=== PATIENT | male | born 1975 | race Hispanic/Latino ===

== ENCOUNTER 2016-10-05 09:50 | Emergency (ER) | payer OTHER ==
[~2016-10-05] VITALS: Ht 177.8 cm; Wt 100.0 kg
[~2016-10-05 09:50] MED LIST: AMOXICILLIN500 MG PO; CEPHALEXIN500 MG PO; DOXYCYCL HYC100 M4 PO; FLEXERIL PO; LORTAB 7.5 PO; LORTAB5 PO; PERCOCET 5/325M1 TAB PO; PERCOCET1 TA4 PO; ULTRAM50 M1 PO
[2016-10-05] MEDS ORDERED: NAPROSYN500 MG PO (11:24)
[2016-10-05 11:25] VITALS: BP 149/76
== END 2016-10-05 11:35 | disposition home or self-care (01) | DRG 605 ==
LOC: ED 09:50
DX: S60.221A Contusion of right hand, initial encounter (principal); F17.210 Nicotine dependence, cigarettes, uncomplicated; W23.0XXA Caught, crushed, jammed, or pinched between moving objects, initial encounter

== ENCOUNTER 2017-09-27 06:48 | Emergency (ER) | payer SELFPAY ==
[~2017-09-27] VITALS: Ht 177.8 cm; Wt 85.0 kg
[~2017-09-27 06:48] MED LIST changes: +NAPROSYN500 MG PO
[2017-09-27 07:47] LABS: HEMATOCRIT 44.7 % (39.0-50.0); HEMOGLOBIN 15.1 g/dl (14.0-18.0); IMMATURE GRANULOCYTES 0.2 % (0.0-1.0); MEAN CORPUSCULAR HGB 31.6 pG CALC (26.0-32.0); MEAN CORPUSCULAR HGB CONC 33.8 g/L CALC (32.0-36.0); NEUT# 2.75 thou/uL (1.82-7.42); RED BLOOD COUNT 4.78 mill/uL (4.70-6.10); RED CELL DISTRI WIDTH 13.1 % (11.5-15.5)
[2017-09-27 07:50] LABS: MEAN CELL VOLUME 93.5 fL CALC (80.0-100.0)
[2017-09-27 08:01] LABS: ALBUMIN 3.8 g/dL (3.2-5.0); ALKALINE PHOSPHATASE 146 u/l (38-126); ANION GAP 17 (6-22 (CALC)); BUN 6 mg/dL (9-20); BUN/CREATININE RATIO 6 (12-20 (CALC)); CARBON DIOXIDE 23 mmol/l (22-30); CHLORIDE 103 mmol/l (95-108); GFR > 60 ML/MIN (>=60 (CALC)); GFR FOR AFR.AMER. > 60 ML/MIN (>=60 (CALC)); POTASSIUM 4.2 mmol/l (3.5-5.1); SGPT/ALT 73 u/l (21-72); SODIUM 139 mmol/l (137-146); TOTAL PROTEIN 7.2 g/dL (6.3-8.2)
[2017-09-27 08:03] LABS: SGOT/AST 68 u/l (17-59)
[2017-09-27] MEDS ORDERED: ZOFRAN ODT4 MG PO (08:41)
[2017-09-27] MEDS ORDERED: LOMOTIL2.5 MG PO (08:41)
[2017-09-27 08:44] VITALS: BP 132/78
== END 2017-09-27 08:45 | disposition home or self-care (01) | DRG 392 ==
LOC: ED 06:48
PROVIDERS: Family Medicine
DX: K52.9 Noninfective gastroenteritis and colitis, unspecified (principal); R10.84 Generalized abdominal pain; R11.2 Nausea with vomiting, unspecified

== ENCOUNTER 2018-02-22 17:15 | Emergency (ER) | payer SELFPAY ==
[~2018-02-22] VITALS: Ht 177.8 cm; Wt 102.0 kg
[~2018-02-22 17:15] MED LIST changes: +LOMOTIL2.5 MG PO; +ZOFRAN ODT4 MG PO
[2018-02-22] MEDS ORDERED: MOTRIN400 MG PO (18:32)
[2018-02-22 19:18] VITALS: BP 124/68
== END 2018-02-22 19:18 | disposition home or self-care (01) | DRG 563 ==
LOC: ED 17:15
DX: S92.331A Displaced fracture of third metatarsal bone, right foot, initial encounter for closed fracture (principal); F17.220 Nicotine dependence, chewing tobacco, uncomplicated; W23.0XXA Caught, crushed, jammed, or pinched between moving objects, initial encounter; Y92.89 Other specified places as the place of occurrence of the external cause; Y99.0 Civilian activity done for income or pay

== ENCOUNTER 2019-02-19 17:20 | Emergency (ER) | payer SELFPAY ==
[~2019-02-19] VITALS: Ht 177.8 cm; Wt 97.7 kg
[~2019-02-19 17:20] MED LIST changes: +MOTRIN400 MG PO
[2019-02-19 19:45] LABS: URINE BILIRUBIN - DIPSTICK NEGATIVE (NEGATIVE); URINE BLOOD DIPSTICK SMALL (NEGATIVE); URINE COLOR YELLOW; URINE GLUCOSE - DIPSTICK NEGATIVE (NEGATIVE); URINE KETONE NEGATIVE (NEGATIVE); URINE LEUK ESTERASE MODERATE (Negative); URINE NITRITE - DIPSTICK NEGATIVE (Negative); URINE PROTEIN - DIPSTICK 30 mg/dL (NEG-TRACE); URINE SPECIFIC GRAVITY 1.025; URINE UROBILINOGEN - DIPSTICK 0.2 E.U./dL (0.2)
[2019-02-19 19:54] LABS: URINE CLARITY CLOUDY
[2019-02-19 19:55] LABS: URINE WBC 50-100 WBC/hpf (0-5)
[2019-02-19] MEDS ORDERED: KEFLEX500 MG PO (20:30)
[2019-02-19] MEDS ORDERED: PYRIDIUM200 MG PO (20:30)
[2019-02-19] MEDS ORDERED: ULTRAM50 MG PO (20:30)
[2019-02-19 21:48] VITALS: BP 121/69
== END 2019-02-19 21:48 | disposition home or self-care (01) | DRG 690 ==
LOC: ED 17:20
DX: N39.0 Urinary tract infection, site not specified (principal); A54.00 Gonococcal infection of lower genitourinary tract, unspecified; B96.89 Other specified bacterial agents as the cause of diseases classified elsewhere; N50.819 Testicular pain, unspecified

== ENCOUNTER 2022-10-15 17:21 | Emergency (ER) | payer SELFPAY ==
[~2022-10-15] VITALS: Ht 177.8 cm; Wt 108.8 kg
[~2022-10-15 17:21] MED LIST changes: +KEFLEX500 MG PO; +PYRIDIUM200 MG PO; +ULTRAM50 MG PO
[2022-10-15 18:00] VITALS: BP 105/68
[2022-10-15 18:16] LABS: ALBUMIN 4.5 g/dL (3.2-5.0); ALKALINE PHOSPHATASE 141 u/l (38-126); ANION GAP 17 (6-22 (CALC)); BILIRUBIN, TOTAL 1.5 mg/dL (0.2-1.3); BUN 13 mg/dL (9-20); BUN/CREATININE RATIO 16 (12-20 (CALC)); CARBON DIOXIDE 23 mmol/l (22-30); CHLORIDE 101 mmol/l (95-108); CREATININE 0.8 mg/dL (0.7-1.3); GFR FOR AFR.AMER. > 60 ML/MIN (>=60 (CALC)); GFR OTHER RACES > 60 ML/MIN (>=60 (CALC)); POTASSIUM 3.2 mmol/l (3.5-5.1); SGOT/AST 303 u/l (17-59); SODIUM 138 mmol/l (137-146); TOTAL PROTEIN 7.9 g/dL (6.3-8.2)
[2022-10-15 18:26] LABS: LIPASE 118 u/l (23-300)
[2022-10-15 18:47] LABS: BASO% 0.3 % (0-3); HEMATOCRIT 40.9 % (39.0-50.0); HEMOGLOBIN 13.4 g/dl (14.0-18.0); IMMATURE GRANULOCYTES 0.7 % (0.0-5.0); LYMPH% 17.7 % (15-41); MEAN CELL VOLUME 88.7 fL CALC (80.0-100.0); MEAN CORPUSCULAR HGB 29.1 pG CALC (26.0-32.0); MEAN CORPUSCULAR HGB CONC 32.8 g/dL CAL (32.0-36.0); MONO% 6.4 % (2-13); NEUT# 4.58 thou/uL (1.82-7.42); NEUT% 74.9 % (42-76); RED BLOOD COUNT 4.61 mill/uL (4.70-6.10); RED CELL DISTRI WIDTH 13.9 % (11.5-15.5)
[2022-10-15 20:25] VITALS: BP 118/66
[2022-10-15 20:30] VITALS: BP 133/86
[2022-10-15 20:33] LABS: URINE BILIRUBIN - DIPSTICK NEGATIVE (NEGATIVE); URINE BLOOD DIPSTICK NEGATIVE (NEGATIVE); URINE COLOR YELLOW; URINE GLUCOSE - DIPSTICK NEGATIVE (NEGATIVE); URINE KETONE 15 mg/dL (NEGATIVE); URINE LEUK ESTERASE NEGATIVE (NEGATIVE); URINE PH 6.5 (4.5-8.0); URINE PROTEIN - DIPSTICK NEGATIVE (NEG-TRACE); URINE SPECIFIC GRAVITY 1.025
[2022-10-15 20:34] LABS: URINE NITRITE - DIPSTICK NEGATIVE (Negative)
[2022-10-15] MEDS ORDERED: LIBRIUM25 MG PO (20:36)
[2022-10-15] MEDS ORDERED: ONDANSETRON4 MG PO (20:36)
[2022-10-15 20:46] VITALS: BP 124/76
[2022-10-15 20:49] VITALS: BP 124/76
== END 2022-10-15 21:09 | disposition home or self-care (01) | DRG 897 ==
LOC: ED 17:21
PROVIDERS: Nurse Practitioner
DX: F10.139 Alcohol abuse with withdrawal, unspecified (principal); R07.9 Chest pain, unspecified; I10 Essential (primary) hypertension; I25.10 Atherosclerotic heart disease of native coronary artery without angina pectoris; F17.200 Nicotine dependence, unspecified, uncomplicated; I25.2 Old myocardial infarction; Y90.2 Blood alcohol level of 40-59 mg/100 ml
CPT/HCPCS: J2060